=== PATIENT | female | born 1965 | race Caucasian/White ===

== ENCOUNTER → 2017-08-24 09:44 | Outpatient (CLI) | payer OTHER, SELFPAY ==
[2017-08-24 10:40] LABS: Alanine Aminotransferase 68 IU/L (9-52); Albumin 4.7 g/dL (3.5-5.0); Albumin Globulin Ratio 1.3 (1.0-2.8); Alkaline Phosphatase 142 U/L (38-126); Aspartate Aminotransferase 94 IU/L (14-36); Bilirubin Total 1.6 mg/dL (0.2-1.3); Blood Urea Nitrogen 9 mg/dL (7-17); Calcium 9.8 mg/dL (8.4-10.2); Carbon Dioxide 28 mmol/L (22-32); Chloride 95 mmol/L (98-107); Cholesterol 271 mg/dL (140-199); Estimated Glomerular Filt Rate > 60.0 mL/min (>60); Globulin 3.6 g/dL (1.7-4.1); Glucose 182 mg/dL (70-100); HDL Cholesterol 107 mg/dL (40-60); HEMOLYSIS < 15 (0-50); Hemoglobin A1C% w Est Avg Glu 5.6 % (4.0-6.0); LDL Cholesterol Calculated 143 mg/dL (<100); Potassium 4.6 mmol/L (3.4-5.1); Sodium 135 mmol/L (137-145); Total Protein 8.3 g/dL (6.3-8.2); Triglycerides 106 mg/dL (35-150)
[2017-08-24 11:03] LABS: Free T3, Triiodothyronine Free 3.68 pg/mL (2.77-5.27); Free T4, Direct Thyroxine 1.12 ng/dL (0.78-2.19)
[2017-08-24 11:16] LABS: Thyroid Stimulating Hormone 1.28 uIU/mL (0.47-4.68)
== END ==
PROVIDERS: PCP Internal Medicine; Visit Provider Internal Medicine
DX: E11.40 Type 2 diabetes mellitus with diabetic neuropathy, unspecified (principal); R79.89 Other specified abnormal findings of blood chemistry; R94.5 Abnormal results of liver function studies; E78.00 Pure hypercholesterolemia, unspecified
CPT/HCPCS: 36415; 80053; 80061; 83036; 84439; 84443; 84481

== ENCOUNTER → 2018-04-21 09:20 | Outpatient (CLI) | payer OTHER, SELFPAY ==
[2018-04-21 10:14] LABS: Alanine Aminotransferase 35 IU/L (9-52); Albumin 4.8 g/dL (3.5-5.0); Albumin Globulin Ratio 1.6 (1.0-2.8); Alkaline Phosphatase 64 U/L (38-126); Aspartate Aminotransferase 23 IU/L (14-36); Bilirubin Direct 0.2 mg/dL (0.0-0.4); Bilirubin Total 0.6 mg/dL (0.2-1.3); Bilirubin Unconjugated 0.4 mg/dL (0.0-1.1); Gamma Glutamyl Transpeptidase 103 U/L (12-43); HEMOLYSIS < 15 (0-50); Total Protein 7.8 g/dL (6.3-8.2)
[2018-04-21 10:41] LABS: TSH w/ Reflex to FT4 1.46 uIU/mL (0.47-4.68)
[2018-04-21 10:59] LABS: Vitamin B12 920 pg/mL (239-931)
== END ==
PROVIDERS: Family Provider Family Medicine; PCP Student in an Organized Health Care Education/Training Program; Visit Provider Student in an Organized Health Care Education/Training Program
DX: R94.5 Abnormal results of liver function studies (principal); E53.8 Deficiency of other specified B group vitamins; R79.89 Other specified abnormal findings of blood chemistry
CPT/HCPCS: 36415; 80076; 82248; 82607; 82977; 84443

== ENCOUNTER → 2018-06-29 08:04 | Outpatient (CLI) | payer OTHER, SELFPAY ==
--- NOTE | 2018-06-29 | DI.MG.S_ITS ---
BILATERAL DIGITAL SCREENING MAMMOGRAM 3D/2D WITH CAD: 06/29/2018 CLINICAL: Routine screening. Comparison is made to exams dated: 06/11/2017 mammogram, 05/25/2016 mammogram, and 05/23/2015 mammogram - [facility]. There are scattered fibroglandular elements in both breasts. Current study was also evaluated with a Computer Aided Detection (CAD) system. There is a benign biopsy clip in the right breast. No significant masses, calcifications, or other findings are seen in either breast. There has been no significant interval change. IMPRESSION: NEGATIVE There is no mammographic evidence of malignancy. A 1 year screening mammogram is recommended. This exam was interpreted at Station ID: [id number]. NOTE: For mammograms, a report in lay terms will be sent to the patient. Approximately 15% of breast malignancies will not be visualized mammographically. In the management of a palpable breast mass, a negative mammogram must not discourage biopsy of a clinically suspicious lesion. Electronically Signed By: Sherif katz/sakshi:06/29/2018 18:00:04 letter sent: Normal Exam ACR BI-RADS Category 1: Negative 3341F
== END ==
PROVIDERS: PCP Student in an Organized Health Care Education/Training Program
DX: Z12.31 Encounter for screening mammogram for malignant neoplasm of breast (principal)
CPT/HCPCS: 77063; 77067

== ENCOUNTER → 2018-07-26 09:53 | Outpatient (CLI) | payer OTHER, SELFPAY ==
[2018-07-26 12:12] LABS: Thyroid Stimulating Hormone 0.12 uIU/mL (0.47-4.68)
== END ==
PROVIDERS: PCP Student in an Organized Health Care Education/Training Program
DX: E11.9 Type 2 diabetes mellitus without complications (principal); Z78.0 Asymptomatic menopausal state
CPT/HCPCS: 36415; 83001; 83036; 84443

== ENCOUNTER → 2018-09-19 14:15 | Outpatient (CLI) | payer OTHER, SELFPAY ==
[2018-09-19 15:54] LABS: Free T3, Triiodothyronine Free 3.63 pg/mL (2.77-5.27); Free T4, Direct Thyroxine 0.99 ng/dL (0.78-2.19)
[2018-09-19 16:07] LABS: Thyroid Stimulating Hormone 1.42 uIU/mL (0.47-4.68)
== END ==
PROVIDERS: Family Provider Student in an Organized Health Care Education/Training Program; PCP Student in an Organized Health Care Education/Training Program
DX: E78.00 Pure hypercholesterolemia, unspecified (principal); R79.89 Other specified abnormal findings of blood chemistry
CPT/HCPCS: 36415; 84439; 84443; 84481

== ENCOUNTER → 2018-11-23 16:30 | Outpatient (CLI) | payer OTHER, SELFPAY ==
[2018-11-23 18:15] LABS: Hemoglobin A1C% w Est Avg Glu 6.3 % (4.0-6.0)
== END ==
PROVIDERS: Family Provider Student in an Organized Health Care Education/Training Program; PCP Student in an Organized Health Care Education/Training Program; Visit Provider Student in an Organized Health Care Education/Training Program
DX: E11.40 Type 2 diabetes mellitus with diabetic neuropathy, unspecified (principal)
CPT/HCPCS: 36415; 83036

== ENCOUNTER → 2019-08-22 11:36 | Outpatient (CLI) | payer OTHER, SELFPAY ==
[2019-08-22 12:24] LABS: Hemoglobin A1C% w Est Avg Glu 6.8 % (4.0-6.0)
[2019-08-22 12:30] LABS: Alanine Aminotransferase 21 IU/L (<35); Aspartate Aminotransferase 22 IU/L (14-36)
[2019-08-22 12:34] LABS: Gamma Glutamyl Transpeptidase 53 U/L (12-43)
[2019-08-22 12:59] LABS: TSH w/ Reflex to FT4 1.04 uIU/mL (0.47-4.68)
== END ==
PROVIDERS: Family Provider Student in an Organized Health Care Education/Training Program; PCP Student in an Organized Health Care Education/Training Program
DX: E11.9 Type 2 diabetes mellitus without complications (principal); Z78.0 Asymptomatic menopausal state; K76.9 Liver disease, unspecified; R79.89 Other specified abnormal findings of blood chemistry
CPT/HCPCS: 36415; 82977; 83001; 83036; 84443; 84450; 84460

== ENCOUNTER → 2019-09-29 15:09 | Outpatient (CLI) | payer OTHER, SELFPAY ==
--- NOTE | 2019-09-29 15:11 | DI.MG.S_ITS ---
BILATERAL DIGITAL SCREENING MAMMOGRAM 3D/2D WITH CAD: 09/29/2019 CLINICAL: Routine screening. Comparison is made to exams dated: 06/29/2018 mammogram, 06/11/2017 mammogram, and 05/25/2016 mammogram - [facility]. There are scattered fibroglandular elements in both breasts. Current study was also evaluated with a Computer Aided Detection (CAD) system. There are benign vascular calcifications in both breasts. There also is a biopsy clip in the right breast. No significant masses, calcifications, or other findings are seen in either breast. There has been no significant interval change. IMPRESSION: There is no mammographic evidence of malignancy. A 1 year screening mammogram is recommended. This exam was interpreted at Station ID: [id number]. NOTE: For mammograms, a report in lay terms will be sent to the patient. Approximately 15% of breast malignancies will not be visualized mammographically. In the management of a palpable breast mass, a negative mammogram must not discourage biopsy of a clinically suspicious lesion. Electronically Signed By: Sherif katz/sakshi:09/29/2019 16:33:32 letter sent: Normal Exam ACR BI-RADS Category 2: Benign Finding(s) 3342F
== END ==
PROVIDERS: Family Provider Student in an Organized Health Care Education/Training Program; PCP Student in an Organized Health Care Education/Training Program; Referring Provider Student in an Organized Health Care Education/Training Program; Visit Provider Student in an Organized Health Care Education/Training Program
DX: Z12.31 Encounter for screening mammogram for malignant neoplasm of breast (principal)
CPT/HCPCS: 77063; 77067

== ENCOUNTER → 2020-04-04 13:35 | Outpatient (CLI) | payer OTHER, SELFPAY ==
[2020-04-04 15:57] LABS: Hemoglobin A1C% w Est Avg Glu 7.8 % (4.0-6.0)
[2020-04-04 16:25] LABS: Blood Urea Nitrogen 12 mg/dL (7-17); Calcium 9.9 mg/dL (8.4-10.2); Carbon Dioxide 30 mmol/L (22-32); Chloride 101 mmol/L (98-107); Estimated Glomerular Filt Rate > 60.0 mL/min (>60); Glucose 170 mg/dL (70-100); HEMOLYSIS < 15 (0-50); Sodium 137 mmol/L (137-145)
[2020-04-04 16:58] LABS: Creatinine Urine Random 15.5 mg/dL
[2020-04-04 17:02] LABS: Microalbumi Creatinin Ratio Ur 212.9 ug/mg CR (<30); Microalbumin Urine Random 3.3 mg/dL (0-1.6)
== END ==
PROVIDERS: Family Provider Student in an Organized Health Care Education/Training Program; PCP Student in an Organized Health Care Education/Training Program; Referring Provider Student in an Organized Health Care Education/Training Program; Visit Provider Student in an Organized Health Care Education/Training Program
DX: E11.40 Type 2 diabetes mellitus with diabetic neuropathy, unspecified (principal)
CPT/HCPCS: 36415; 80048; 82043; 82570; 83036

== ENCOUNTER → 2020-07-24 09:00 | Outpatient (CLI) | payer OTHER, SELFPAY ==
[2020-07-24 10:13] LABS: Hemoglobin A1C% w Est Avg Glu 6.4 % (4.0-6.0)
[2020-07-24 10:19] LABS: Alanine Aminotransferase 20 IU/L (<35); Albumin 4.7 g/dL (3.5-5.0); Albumin Globulin Ratio 1.6 (1.0-2.8); Alkaline Phosphatase 57 U/L (38-126); Aspartate Aminotransferase 22 IU/L (14-36); BUN Creatinine Ratio 21.8 (6-22); Bilirubin Total 0.4 mg/dL (0.2-1.3); Blood Urea Nitrogen 12 mg/dL (7-17); Calcium 9.7 mg/dL (8.4-10.2); Carbon Dioxide 23 mmol/L (22-32); Chloride 101 mmol/L (98-107); Cholesterol 285 mg/dL (140-199); Estimated Glomerular Filt Rate > 60.0 mL/min (>60); Globulin 2.9 g/dL (1.7-4.1); Glucose 154 mg/dL (70-100); HDL Cholesterol 63 mg/dL (40-60); HEMOLYSIS < 15 (0-50); LDL Cholesterol Calculated 198 mg/dL (<100); Potassium 4.4 mmol/L (3.4-5.1); Sodium 135 mmol/L (137-145); Total Protein 7.6 g/dL (6.3-8.2); Triglycerides 121 mg/dL (35-150)
[2020-07-24 11:08] LABS: Vitamin B12 > 1000 pg/mL (239-931)
[2020-07-24 12:47] LABS: Creatinine Urine Random 108.7 mg/dL
[2020-07-24 12:51] LABS: Microalbumi Creatinin Ratio Ur 23.9 ug/mg CR (<30); Microalbumin Urine Random 2.6 mg/dL (0-1.6)
== END ==
PROVIDERS: Family Provider Student in an Organized Health Care Education/Training Program; PCP Student in an Organized Health Care Education/Training Program; Referring Provider Student in an Organized Health Care Education/Training Program; Visit Provider Student in an Organized Health Care Education/Training Program
DX: E11.29 Type 2 diabetes mellitus with other diabetic kidney complication (principal); E11.69 Type 2 diabetes mellitus with other specified complication; E66.09 Other obesity due to excess calories; E78.5 Hyperlipidemia, unspecified; R80.9 Proteinuria, unspecified; Z68.31 Body mass index [BMI] 31.0-31.9, adult; E11.42 Type 2 diabetes mellitus with diabetic polyneuropathy
CPT/HCPCS: 36415; 80053; 80061; 82043; 82570; 82607; 83036

== ENCOUNTER → 2020-09-30 08:10 | Outpatient (CLI) | payer OTHER, SELFPAY ==
--- NOTE | 2020-09-30 | DI.MG.S_ITS ---
BILATERAL DIGITAL SCREENING MAMMOGRAM 3D/2D WITH CAD: 09/30/2020 CLINICAL: Routine screening. Comparison is made to exams dated: 09/29/2019 mammogram and 06/29/2018 mammogram - [facility]. There are scattered fibroglandular elements in both breasts. Current study was also evaluated with a Computer Aided Detection (CAD) system. There are benign vascular calcifications in both breasts. There also is a biopsy clip in the right breast. No significant masses, calcifications, or other findings are seen in either breast. There has been no significant interval change. IMPRESSION: BENIGN There is no mammographic evidence of malignancy. A 1 year screening mammogram is recommended. This exam was interpreted at Station ID: [id number]. NOTE: For mammograms, a report in lay terms will be sent to the patient. Approximately 15% of breast malignancies will not be visualized mammographically. In the management of a palpable breast mass, a negative mammogram must not discourage biopsy of a clinically suspicious lesion. Electronically Signed By: Xavier garcia/sakshi:09/30/2020 09:43:50 letter sent: Normal Exam ACR BI-RADS Category 2: Benign Finding(s) 3342F
== END ==
PROVIDERS: Family Provider Student in an Organized Health Care Education/Training Program; PCP Student in an Organized Health Care Education/Training Program; Referring Provider Obstetrics & Gynecology; Visit Provider Obstetrics & Gynecology
DX: Z12.31 Encounter for screening mammogram for malignant neoplasm of breast (principal)
CPT/HCPCS: 77063; 77067

== ENCOUNTER → 2021-01-08 11:31 | Outpatient (CLI) | payer OTHER, SELFPAY ==
[2021-01-08 12:37] LABS: Hemoglobin A1C% w Est Avg Glu 6.2 % (4.0-6.0)
[2021-01-08 13:45] LABS: Cholesterol 268 mg/dL (140-199); HDL Cholesterol 66 mg/dL (40-60); LDL Cholesterol Calculated 165 mg/dL (<100); Triglycerides 183 mg/dL (35-150)
== END ==
PROVIDERS: Family Provider Student in an Organized Health Care Education/Training Program; PCP Student in an Organized Health Care Education/Training Program; Referring Provider Student in an Organized Health Care Education/Training Program; Visit Provider Student in an Organized Health Care Education/Training Program
DX: E11.29 Type 2 diabetes mellitus with other diabetic kidney complication (principal); E11.69 Type 2 diabetes mellitus with other specified complication; E78.5 Hyperlipidemia, unspecified; R80.9 Proteinuria, unspecified
CPT/HCPCS: 36415; 80061; 83036

== ENCOUNTER → 2021-08-29 10:16 | Outpatient (CLI) | payer OTHER, SELFPAY ==
[2021-08-29 11:05] LABS: Hemoglobin A1C% w Est Avg Glu 7.2 % (4.0-6.0)
[2021-08-29 11:08] LABS: Alanine Aminotransferase 18 IU/L (<35); Albumin 4.8 g/dL (3.5-5.0); Albumin Globulin Ratio 1.8 (1.0-2.8); Alkaline Phosphatase 52 U/L (38-126); Aspartate Aminotransferase 21 IU/L (14-36); BUN Creatinine Ratio 20.4 (6-22); Bilirubin Total 0.5 mg/dL (0.2-1.3); Blood Urea Nitrogen 11 mg/dL (7-17); Calcium 9.3 mg/dL (8.4-10.2); Carbon Dioxide 28 mmol/L (22-32); Chloride 102 mmol/L (98-107); Cholesterol 250 mg/dL (140-199); Estimated Glomerular Filt Rate > 60 mL/min (>60); Globulin 2.7 g/dL (1.7-4.1); Glucose 165 mg/dL (70-100); HDL Cholesterol 49 mg/dL (40-60); HEMOLYSIS < 15 (0-50); LDL Cholesterol Calculated 175 mg/dL (<100); Potassium 4.5 mmol/L (3.4-5.1); Sodium 137 mmol/L (137-145); Total Protein 7.5 g/dL (6.3-8.2); Triglycerides 129 mg/dL (35-150)
[2021-08-29 12:05] LABS: Creatinine Urine Random 48.1 mg/dL
[2021-08-29 12:09] LABS: Microalbumi Creatinin Ratio Ur 18.7 ug/mg CR (<30); Microalbumin Urine Random 0.9 mg/dL (0-1.6)
== END ==
PROVIDERS: Family Provider Student in an Organized Health Care Education/Training Program; PCP Student in an Organized Health Care Education/Training Program; Referring Provider Student in an Organized Health Care Education/Training Program; Visit Provider Student in an Organized Health Care Education/Training Program
DX: E11.29 Type 2 diabetes mellitus with other diabetic kidney complication (principal); E11.69 Type 2 diabetes mellitus with other specified complication; E78.5 Hyperlipidemia, unspecified; R80.9 Proteinuria, unspecified; Z79.899 Other long term (current) drug therapy
CPT/HCPCS: 36415; 80053; 80061; 82043; 82570; 83036

== ENCOUNTER → 2021-10-02 10:14 | Outpatient (CLI) | payer OTHER, SELFPAY ==
--- NOTE | 2021-10-02 | DI.MG.S_ITS ---
BILATERAL DIGITAL SCREENING MAMMOGRAM 3D/2D WITH CAD: 10/02/2021 CLINICAL: Routine screening. Comparison is made to exams dated: 09/30/2020 mammogram, 09/29/2019 mammogram, and 06/29/2018 mammogram - [facility]. There are scattered fibroglandular elements in both breasts. Current study was also evaluated with a Computer Aided Detection (CAD) system. There are benign vascular calcifications in both breasts. There also is a biopsy clip in the right breast. No significant masses, calcifications, or other findings are seen in either breast. There has been no significant interval change. IMPRESSION: BENIGN There is no mammographic evidence of malignancy. A 1 year screening mammogram is recommended. Based on the Tyrer Cuzick model (a risk assessment model) the patient's lifetime risk is 5.5% and her 10 year risk is 1.9%. According to the ACR, ACS, and NCCN guidelines, an annual breast MRI exam along with mammogram is recommended if the patient's lifetime risk is 20% or greater. This exam was interpreted at Station ID: [id number]. NOTE: For mammograms, a report in lay terms will be sent to the patient. Approximately 15% of breast malignancies will not be visualized mammographically. In the management of a palpable breast mass, a negative mammogram must not discourage biopsy of a clinically suspicious lesion. Electronically Signed By: Kosta castellon/sakshi:10/02/2021 12:47:07 letter sent: Normal Exam ACR BI-RADS Category 2: Benign Finding(s) 3342F
== END ==
PROVIDERS: Family Provider Student in an Organized Health Care Education/Training Program; PCP Student in an Organized Health Care Education/Training Program; Referring Provider Student in an Organized Health Care Education/Training Program; Visit Provider Student in an Organized Health Care Education/Training Program
DX: Z12.31 Encounter for screening mammogram for malignant neoplasm of breast (principal)
CPT/HCPCS: 77063; 77067

== ENCOUNTER → 2021-12-24 12:58 | Outpatient (CLI) | payer OTHER, SELFPAY ==
--- NOTE | 2022-01-05 15:45 | DIAB.INIT ---
Initial Diabetes Education Assessment Name: Cindy Swanson I Date: 12/24/21 Time: 1-230p Dx: Type II Diabetes Provider: Yvonne Cindy presents today for initial visit. States she has had DM for 5 years. FH of DM with maternal grandmother. Not currently taking Metformin. Not open to a statin. HgA1c of 7.2%, up from 6.2% the year prior. Additionally, elevated cholesterol of LDL 175 and total cholesterol of 250. States she prefers more natural medicines. Only takes Metfomin intermittently prn per report. Reports her BG is elevated r/t stress, ie her mother in law passed three years ago and in two years of probate, remodeled home, moved in Apr, had COVID, mother wants to sell her home in [place]. Reports sleep disturbances r/t husbands snoring. Reports her BG are better when she takes apple cider vinegar. Also reports her cholesterol has mildly improved with the addition of apple cider vinegar. Diet recall indicates a low carb diet for most meals/snacks. Does eat sourdough and berries. Otherwise, mostly vegetables and protein. Occasional 1/2c rice or noodles or potatoes. Sometimes will bake Anthropometrics: Ht: 67 Wt: 192# Physical Activity: Reports an average of 10,000-15,000 steps per day (walking, cleaning, landscaping) Self-Monitoring Blood Glucose: 6/7 elevated FBG. Limited other readings for review. 2 in goal readings pre dinner. Seems HS Metformin would be beneficial to mitigate hyperglycemia. She would like to try other remedies first, ie apple cider vinegar and HS snack. Date Pre Post Pre Post Pre Post HS 12/18 143 12/19 143 124 12/20 150 117 12/21 154 12/22 118 12/23 131 12/24 169 Diabetes Medications: 500mg Metformin BID prn Pertinent Labs: 08/2021 HgA1c 7.2%; LDL 175, total cholesterol: 250. HDL 49 Past Medical History: (Last Reviewed 05/30/21 @ 17:47 by Johanna Schwartz PA-C) Cutaneous candidiasis Elevated LFTs (2017) Hyperlipidemia associated with type 2 diabetes mellitus Low TSH level Obesity Type 2 diabetes mellitus with albuminuria Intervention: This participant was very receptive. Provided appropriate educational handouts. Discussed the following topics: Completed intake assessment. Discussed barriers to care. Pathophysiology of type 2 diabetes Isabella phenomenon Sleep impact on FBG HgA1c, its correlation to blood glucose numbers, and rationale for goal Importance of self-monitoring, how often, and when to check. Suggested checking at different times to evaluate meals Plate Method General recommended servings for carbohydrates at meals and snacks Role of physical activity and following provider guidelines for safety Importance of statin and Metformin. Action of Metformin Risk of [place] and stroke with DM over time. Potential other options for lowing cholesterol (we did discuss red yeast rice, though strongly encouraged her to discuss with her provider first. After our visit this RD messaged her PCP. He would not support a red yeast rice supplement despite she is not open to a statin. Will discuss heart health and recs for statin again next visit) Created SMART goals for patient self-care and success. Goals: Try 3 weeks of apple cider vinegar and HS snack Thereafter, 3 weeks of Metformin as rx'd. Follow-up: JESSIE RODRIGUEZ follow-up in 3-[address] anticipates the Metformin will improve BG over other remedies, however based on stage of change and Cindy's preferences she will try these other two options before trialing going back to Metformin. Will cont to evaluate. Lashell Wolff, JESSIE, [facility] Certified Diabetes Care and Service Employee P: [phone] Thank you for this referral
== END ==
PROVIDERS: Family Provider Student in an Organized Health Care Education/Training Program; PCP Student in an Organized Health Care Education/Training Program; Referring Provider Student in an Organized Health Care Education/Training Program; Visit Provider Student in an Organized Health Care Education/Training Program
DX: E11.9 Type 2 diabetes mellitus without complications (principal); Z71.3 Dietary counseling and surveillance
CPT/HCPCS: G0108

== ENCOUNTER → 2022-01-14 10:54 | Outpatient (CLI) | payer OTHER, SELFPAY ==
--- NOTE | 2022-01-14 16:51 | DIAB.FU ---
Follow-up Diabetes Education Assessment Name: Cindy Swanson I Date: 01/14/22 Time: Dx: Type II Diabetes Cindy Gonzalez presents today for follow-up. Reports continued elevated FBG. States she feels numbers are higher than last visit. Has been taking apple cider vinegar in evenings somewhat inconsistently. Feels this has helped in the past, but not this time. States her body gets use to certain treatments. Wants to try vinegar TID as she has in the past. Not necessarily open to medication as much as herbal supplements. Likely benefit from taking Metformin HS again. Would like to try HS snack first. States she will not take a statin. Did discuss recs from medical orgs and her provider, and risk of Mi and stroke with Dm and HLD. Wants to try Red Yeast Rice supplement. Advised her that PCP does not recommend this based on evidenced-based information. Does not like fish much. Has h/o constipation. Reports getting plenty of fiber from foods. Endorses better sleep recently. States she is not drinking as much water. Physical Activity: No change. Reports an average of 10,000-15,000 steps per day (walking, cleaning, landscaping) Self-Monitoring Blood Glucose: FBG cont >130mg/dl. All elevated. Later in the day BG range in goal from 115-150mg/dL. Date Pre Post Pre Post Pre Post HS 01/07 141 01/08 143 01/09 155 01/10 197 01/11 145 01/13 189 01/14 180 Diabetes Medications: 500mg Metformin BID prn Pertinent Labs: 08/2021 HgA1c 7.2%; LDL 175, total cholesterol: 250. HDL 49 Past Medical History: (Last Reviewed 05/30/21 @ 17:47 by Johanna Schwartz PA-C) Cutaneous candidiasis Elevated LFTs (2017) Hyperlipidemia associated with type 2 diabetes mellitus Low TSH level Obesity Type 2 diabetes mellitus with albuminuria Intervention: This participant was very receptive. Provided appropriate educational handouts. Discussed the following topics: Recent blood sugar results and trends Medication management Review of general nutrition recommendations and current intake Fiber and fat recs for HLD Risk of [place] and stroke with DM and HLD and CVD Potential for Metformin HS to help with FBG Lack of oversight and evidence for supplements to treat chronic disease Created SMART goals for patient self-care and success. Goals: Try 3 weeks of HS snack Thereafter, 3 weeks of Metformin as rx'd. Follow-up: JESSIE RODRIGUEZ follow-up in 3-4 weeks Lashell Wolff RDN, JENNIFER Certified Diabetes Care and Science And Operations Officer P: [phone] Thank you for this referral
== END ==
PROVIDERS: Family Provider Student in an Organized Health Care Education/Training Program; PCP Student in an Organized Health Care Education/Training Program; Referring Provider Student in an Organized Health Care Education/Training Program; Visit Provider Student in an Organized Health Care Education/Training Program
DX: E11.65 Type 2 diabetes mellitus with hyperglycemia (principal); Z79.84 Long term (current) use of oral hypoglycemic drugs; Z71.3 Dietary counseling and surveillance
CPT/HCPCS: G0108

== ENCOUNTER → 2022-04-03 15:06 | Outpatient (CLI) | payer OTHER, SELFPAY ==
[2022-04-03 15:47] LABS: Hemoglobin A1C% w Est Avg Glu 6.9 % (4.0-6.0)
== END ==
PROVIDERS: Family Provider Student in an Organized Health Care Education/Training Program; PCP Student in an Organized Health Care Education/Training Program; Referring Provider Student in an Organized Health Care Education/Training Program; Visit Provider Student in an Organized Health Care Education/Training Program
DX: E11.29 Type 2 diabetes mellitus with other diabetic kidney complication (principal); R80.9 Proteinuria, unspecified
CPT/HCPCS: 36415; 83036

== ENCOUNTER → 2022-10-05 11:58 | Outpatient (CLI) | payer OTHER, SELFPAY ==
[2022-10-05 12:57] LABS: Hematocrit 37.5 % (36-46); Mean Corpuscular HGB Conc 34.6 % (30-36); Mean Corpuscular Hemoglobin 30.2 PG (26-34); Mean Corpuscular Volume 87.3 fL (80-100); Platelet Count 194 X10^3/uL (150-400); Red Blood Cell Count 4.29 X10^6/uL (4.0-5.2); Red Cell Distribution Width 12.7 % (11.6-14.8); White Blood Cell Count 4.4 X10^3/uL (4.5-11.0)
[2022-10-05 13:21] LABS: BUN Creatinine Ratio 27.3 (6-22); Blood Urea Nitrogen 15 mg/dL (7-17); Carbon Dioxide 28 mmol/L (22-32); Chloride 102 mmol/L (98-107); Cholesterol 259 mg/dL (140-199); Estimated Glomerular Filt Rate > 60 mL/min (>60); Glucose 151 mg/dL (70-100); HDL Cholesterol 60 mg/dL (40-60); HEMOLYSIS < 15 (0-50); LDL Cholesterol Calculated 174 mg/dL (<100); Potassium 4.3 mmol/L (3.4-5.1); Sodium 135 mmol/L (137-145); Triglycerides 124 mg/dL (35-150)
[2022-10-05 13:51] LABS: TSH w/ Reflex to FT4 0.78 uIU/mL (0.47-4.68)
[2022-10-05 16:25] LABS: Microalbumin Urine Random < 0.6 mg/dL (0-1.6)
[2022-10-06 06:06] LABS: Labcorp Hemoglobin (Hb) A1c 6.3 % (4.8-5.6)
== END ==
PROVIDERS: Family Provider Student in an Organized Health Care Education/Training Program; PCP Internal Medicine; Referring Provider Internal Medicine; Visit Provider Internal Medicine
DX: E11.42 Type 2 diabetes mellitus with diabetic polyneuropathy (principal); E78.2 Mixed hyperlipidemia; G62.9 Polyneuropathy, unspecified; I10 Essential (primary) hypertension
CPT/HCPCS: 36415; 80048; 80061; 82043; 82570; 83036; 84443; 85027

== ENCOUNTER → 2022-10-05 12:02 | Outpatient (CLI) | payer OTHER, SELFPAY ==
--- NOTE | 2022-10-05 12:03 | DI.MG.S_ITS ---
BILATERAL DIGITAL SCREENING MAMMOGRAM 3D/2D WITH CAD: 10/05/2022 CLINICAL: Routine screening. Comparison is made to exams dated: 10/02/2021 mammogram, 09/30/2020 mammogram, and 09/29/2019 mammogram - [facility]. There are scattered areas of fibroglandular density in both breasts (category b / 25%-50% glandular tissue). Current study was also evaluated with a Computer Aided Detection (CAD) system. There are benign vascular calcifications in both breasts. There also is a biopsy clip in the right breast. No significant masses, calcifications, or other findings are seen in either breast. There has been no significant interval change. IMPRESSION: BENIGN There is no mammographic evidence of malignancy. A 1 year screening mammogram is recommended. Based on the Tyrer Cuzick model (a risk assessment model) the patient's lifetime risk is 5.4% and her 10 year risk is 2.0%. According to the ACR, ACS, and NCCN guidelines, an annual breast MRI exam along with mammogram is recommended if the patient's lifetime risk is 20% or greater. This exam was interpreted at Station ID: [id number]. NOTE: For mammograms, a report in lay terms will be sent to the patient. Approximately 15% of breast malignancies will not be visualized mammographically. In the management of a palpable breast mass, a negative mammogram must not discourage biopsy of a clinically suspicious lesion. Electronically Signed By: Precious tomas/sakshi:10/05/2022 14:05:04 letter sent: Normal Exam ACR BI-RADS Category 2: Benign Finding(s) 3342F
== END ==
PROVIDERS: Family Provider Student in an Organized Health Care Education/Training Program; PCP Internal Medicine; Referring Provider Internal Medicine; Visit Provider Student in an Organized Health Care Education/Training Program
DX: Z12.31 Encounter for screening mammogram for malignant neoplasm of breast (principal)
CPT/HCPCS: 77063; 77067

== ENCOUNTER → 2023-04-05 12:17 | Outpatient (CLI) | payer BC, SELFPAY ==
[2023-04-05 13:45] LABS: Hemoglobin A1C% w Est Avg Glu 6.6 % (4.0-6.0)
[2023-04-05 13:58] LABS: BUN Creatinine Ratio 20.3 (6-22); Blood Urea Nitrogen 12 mg/dL (7-17); Calcium 9.8 mg/dL (8.4-10.2); Carbon Dioxide 27 mmol/L (22-32); Chloride 101 mmol/L (98-107); Estimated Glomerular Filt Rate > 60 mL/min (>60); Glucose 140 mg/dL (70-100); HEMOLYSIS < 15 (0-50); Sodium 137 mmol/L (137-145)
== END ==
PROVIDERS: Family Provider Student in an Organized Health Care Education/Training Program; PCP Internal Medicine; Referring Provider Internal Medicine; Visit Provider Internal Medicine
DX: E11.42 Type 2 diabetes mellitus with diabetic polyneuropathy (principal)
CPT/HCPCS: 36415; 80048; 83036

== ENCOUNTER 2023-07-06 08:16 | Day surgery (SDC) | payer OTHER, SELFPAY ==
--- NOTE | 2023-07-06 | PATH_ITS ---
[facility] Accession Number: [id number] No. of containers..01 Tissue . 01 Material submitted: . colon - CECAL POLYP . 01 Diagnosis: CECAL POLYP: Tubular adenoma. STO 07/12/2023 1154 Local . 01 Electronically signed: . Sherif Green MD, Pathologist NPI- [id number] . 01 Gross description: . CECAL POLYP: Received in formalin are 4 fragment(s) of ling, soft tissue measuring 0.1 x 0.1 x 0.1 cm to 0.3 x 0.3 x 0.3 cm submitted entirely in 1 cassette(s) /MAYRA 07/12/2023 1154 Local . 01 Pathologist provided ICD-10: D12.0 . 01 CPT . 611570 Specimen Comment: A courtesy copy of this report has been sent to [phone] Performed at: 01 [facility] [address] [place] [address], [place], [place] [id number] MD Sherif Green MD Phone: [phone]
[2023-07-06 08:37] VITALS: BP 133/80; PULSE 77; RESP 16; TEMP 36.3; O2SAT 99
[2023-07-06] MEDS: LACTATED RINGERS 1,000 ML 42 ML IV (08:47)
--- NOTE | 2023-07-06 09:15 | PM.HP.1 ---
History of Present Illness History of Present Illness Date Patient Seen: 07/06/23 Time Patient Seen: 09:15 Chief complaint: Dx Colonoscopy w/poss bx Narrative: 57-year-old woman personal history of colonic polyps here for screening colonoscopy. Last colonoscopy 2016. No family history of intestinal malignancy. No abdominal concerns today. [facility] Medical History Overweight Chronic low back pain Polyneuropathy, unspecified Mixed hyperlipidemia Essential hypertension Type 2 diabetes mellitus with polyneuropathy Cutaneous candidiasis Low TSH level Elevated LFTs (2016) Surgical History History of reversal of tubal ligation (1999) History of bilateral tubal ligation Social History details: , lives with mother with dementia, 3 children Smoking Status: Former smoker alcohol intake: never Meds Home Medications and Allergies Home Medications Medication Instructions Recorded Confirmed Type ibuprofen 200 mg tablet (Advil) 200 mg PO PRN ##0 04/24/11 07/06/23 History alpha lipoic acid 1 tab PO DAILY 09/29/22 07/06/23 History apple cider vinegar 1 cap PO DAILY 09/29/22 07/06/23 History cholecalciferol (vitamin D3) 1 tab PO DAILY 09/29/22 07/06/23 History coQ10 (ubiquinol) 1 cap PO DAILY 09/29/22 07/06/23 History magnesium citrate 1 tab PO BID 09/29/22 07/06/23 History omega-3 fatty acids [Fish Oil 1 cap PO DAILY 09/29/22 07/06/23 History Concentrate] Allergies Allergy/AdvReac Type Severity Reaction Status Date / Time amoxicillin [AMOXICILLIN] Allergy Severe ANAPHYLAXIS Verified 07/06/23 08:35 venom-honey bee Allergy Mild Verified 07/06/23 08:35 [BEE VENOM (HONEY BEE)] lisinopril AdvReac Intermediate Cough Verified 07/06/23 08:35 Exam Vital Signs (past 8 hours): - 07/06/23 08:37 Temperature 97.4 F L Pulse Rate 77 Respiratory Rate 16 Blood Pressure 133/80 Pulse Oximetry 99 Oxygen Delivery Method Room Air Oxygen Delivery Method Room Air Narrative Exam Narrative: General adult woman alert oriented no acute distress Chest nonlabored respiration Extremities warm well perfused Assessment & Plan Assessment & Plan narrative: The patient requires colorectal screening and colonoscopy is recommended. Technical details were discussed. Risks, benefits, alternatives explained. Risks including but not limited to myocardial infarction, aspiration, bleeding, pain, missed lesion, incomplete examination, need for further radiographic studies, intestinal injury, and need for major abdominal surgery were discussed. All questions were answered to their satisfaction, and they are in agreement with this plan.
[2023-07-06 09:48] VITALS: BP 127/71; PULSE 75; RESP 16; TEMP 36.2; O2SAT 98
--- NOTE | 2023-07-06 09:51 | P.OP.COLON_ITS ---
Operative Date/Time/Diagnoses Date of procedure: 07/06/23 Time of procedure: 09:51 Pre-op diagnosis: Colorectal screening Personal history of colonic polyps Procedure & Clinicians Study performed: Colonoscopy and polypectomy Same procedure as scheduled: Yes Indications: Colorectal screening Surgeon: Michael Jenkins Procedure Notes Procedure in detail: The history and physical was performed/updated and the patient is ASA class is 2. The procedure was discussed in detail with the patient. Potential risks complications including infection, bleeding, missed diagnosis, perforation, need for surgery, and were explained. Their questions were answered and info rmed consent was obtained. Patient was brought to the procedure room and placed standard monitoring equipment. The patient's vital signs were monitored continuously throughout the entire procedure. Prior to starting time-out was performed. The patient was placed in the left lateral recumbent position. Procedural sedation was administered by anesthesia. Examination began with a thorough inspection of the perianal area there was no evidence of fissures, fistulae, external hemorrhoids or cutaneous malignancy. The colonoscopy scope was then placed into the anal canal and was advanced to the cecum, which was identified by the ileocecal valve, the appendiceal orifice and the confluence of the taenia. The scope was then slowly withdrawn examining colon thoroughly in all directions, irrigating it of any residual stool. The scope was retroflexed within the rectum The patient tolerated the procedure well. They will be discharged once criteria are met. The prep was of good/excellent quality. The withdrawl time was 7 minutes. FINDINGS * Cecum 3-5 mm sessile polyp removed with biopsy forceps * Diverticulosis of sigmoid colon mild Specimen(s): other (Cecal polyp) Impression: Colonic polyp x1 Post-procedure Recommendations: High fiber diet Plan for aftercare: Follow-up is dependent on pathology findings likely 5 years. Disposition: same day surgery
[2023-07-06 09:53] VITALS: BP 134/68; PULSE 81; RESP 16; O2SAT 98
[2023-07-06 09:58] VITALS: BP 122/64; PULSE 73; RESP 14; O2SAT 99
[2023-07-06 10:06] VITALS: BP 131/74; PULSE 70; RESP 16; TEMP 36.2; O2SAT 99
== END 2023-07-06 10:24 | disposition home or self-care (01) ==
PROVIDERS: Family Provider Student in an Organized Health Care Education/Training Program; PCP Internal Medicine; Referring Provider Surgery; Visit Provider Surgery
PROC: 0DJD8ZZ Inspection of Lower Intestinal Tract, Via Natural or Artificial Opening Endoscopic (ICD-10-PCS; CPT 45378; principal; 2023-07-06 09:15)
DX: Z12.11 Encounter for screening for malignant neoplasm of colon (principal); Z86.010 Personal history of colon polyps; K57.30 Diverticulosis of large intestine without perforation or abscess without bleeding; D12.0 Benign neoplasm of cecum
CPT/HCPCS: 45380; 82962; J2405; J2704

== ENCOUNTER → 2023-10-13 11:39 | Outpatient (CLI) | payer OTHER, SELFPAY ==
--- NOTE | 2023-10-13 11:39 | DI.MG.S_ITS ---
BILATERAL DIGITAL SCREENING MAMMOGRAM 3D/2D WITH CAD: 10/13/2023 CLINICAL: Routine screening. Comparison is made to exams dated: 09/30/2020 mammogram, 09/29/2019 mammogram, 06/29/2018 mammogram, and 10/05/2022 mammogram - [facility]. There are scattered areas of fibroglandular density in both breasts (category b / 25%-50% glandular tissue). Current study was also evaluated with a Computer Aided Detection (CAD) system. There are benign vascular calcifications in both breasts. There also is a biopsy clip in the right breast. No significant masses, calcifications, or other findings are seen in either breast. There has been no significant interval change. IMPRESSION: BENIGN There is no mammographic evidence of malignancy. A 1 year screening mammogram is recommended. Based on the Tyrer Cuzick model (a risk assessment model) the patient's lifetime risk is 5.3% and her 10 year risk is 2.0%. According to the ACR, ACS, and NCCN guidelines, an annual breast MRI exam along with mammogram is recommended if the patient's lifetime risk is 20% or greater. This exam was interpreted at Station ID: [id number]. NOTE: For mammograms, a report in lay terms will be sent to the patient. Approximately 15% of breast malignancies will not be visualized mammographically. In the management of a palpable breast mass, a negative mammogram must not discourage biopsy of a clinically suspicious lesion. Electronically Signed By: Susi laresn/sakshi:10/13/2023 15:55:30 letter sent: Normal Exam ACR BI-RADS Category 2: Benign Finding(s) 3342F
[2023-10-13 13:12] LABS: Aspartate Aminotransferase 22 IU/L (14-36); BUN Creatinine Ratio 15.4 (6-22); Blood Urea Nitrogen 10 mg/dL (7-17); Calcium 9.5 mg/dL (8.4-10.2); Carbon Dioxide 25 mmol/L (22-32); Chloride 100 mmol/L (98-107); Cholesterol 275 mg/dL (140-199); Estimated Glomerular Filt Rate > 60 mL/min (>60); Glucose 157 mg/dL (70-100); HDL Cholesterol 75 mg/dL (40-60); HEMOLYSIS < 15 (0-50); LDL Cholesterol Calculated 177 mg/dL (<100); Potassium 4.1 mmol/L (3.4-5.1); Sodium 134 mmol/L (137-145); Triglycerides 117 mg/dL (35-150)
[2023-10-13 16:39] LABS: Creatinine Urine Random 71.28 mg/dL
[2023-10-13 16:42] LABS: Microalbumin Urine Random 0.6 mg/dL (0-1.6)
== END ==
PROVIDERS: Family Provider Student in an Organized Health Care Education/Training Program; PCP Internal Medicine; Referring Provider Internal Medicine; Visit Provider Internal Medicine
DX: R92.323 Mammographic fibroglandular density, bilateral breasts (principal); E78.2 Mixed hyperlipidemia; I10 Essential (primary) hypertension; Z12.31 Encounter for screening mammogram for malignant neoplasm of breast; E11.42 Type 2 diabetes mellitus with diabetic polyneuropathy
CPT/HCPCS: 77063; 77067; 80048; 80061; 82043; 82570; 84450

== ENCOUNTER → 2024-06-05 15:17 | Outpatient (CLI) | payer OTHER, SELFPAY ==
[2024-06-05 16:25] LABS: Hemoglobin A1C% w Est Avg Glu 5.8 % (4.0-6.0)
[2024-06-05 16:39] LABS: Aspartate Aminotransferase 23 IU/L (14-36); BUN Creatinine Ratio 22.9 (6-22); Blood Urea Nitrogen 16 mg/dL (7-17); Calcium 10.2 mg/dL (8.4-10.2); Carbon Dioxide 26 mmol/L (22-32); Chloride 101 mmol/L (98-107); Cholesterol 283 mg/dL (140-199); Estimated Glomerular Filt Rate > 60 mL/min (>60); Glucose 118 mg/dL (70-100); HDL Cholesterol 63 mg/dL (40-60); HEMOLYSIS < 15 (0-50); LDL Cholesterol Calculated 178 mg/dL (<100); Sodium 139 mmol/L (137-145); Triglycerides 212 mg/dL (35-150)
[2024-06-05 17:08] LABS: TSH w/ Reflex to FT4 1.19 uIU/mL (0.47-4.68)
[2024-06-05 17:23] LABS: Creatinine Urine Random 21.14 mg/dL
[2024-06-05 17:52] LABS: Microalbumin Urine Random < 0.6 mg/dL (0-1.6)
== END ==
PROVIDERS: PCP Internal Medicine; Referring Provider Internal Medicine; Visit Provider Internal Medicine
DX: E11.42 Type 2 diabetes mellitus with diabetic polyneuropathy (principal); E78.2 Mixed hyperlipidemia
CPT/HCPCS: 36415; 80048; 80061; 82043; 82570; 83036; 84443; 84450